=== PATIENT | male | born 1955 | race Two or more races ===

== ENCOUNTER 2024-08-05 10:23 | Emergency (ER) | payer OTHER, MEDICAID ==
[~2024-08-05] VITALS: Ht 162.6 cm; Wt 84.0 kg
--- NOTE | 2024-08-05 10:30 | ECG ---
[facility] Test Date: 2024-08-05 Test Time: 10:24:01 Pat Name: ROXANA MCKEON Department: ED Room: Gender: M Supervisor Stripping: TANJA : 1955 Requested By: ITALO GARCIA Order Number: [id number] Reading MD: Wetson Gamez Measurements Intervals [place] Rate: 72 P: 48 AK: 138 QRS: 38 QRSD: 84 T: -7 QT: 410 QTc: 449 Interpretive Statements Sinus rhythm Electronically Signed On 08-08-2024 13:21:26 PDT by Weston Gamez Please click the below link to view image of tracing.
--- NOTE | 2024-08-05 10:33 | ED.PDOC ---
HPI Comments 69 y.o male presents to the ED for a chief complaint of substernal chest pain associated with sweats, SOB, and nausea that started today. Patient reports pain is non radiating, constant and rating a 7/10 on the pain scale. Patient had blood work done on 07/31/24 and 08/02/24 s/p possible spider bite to the left facial side and was found to have low potassium. Patient reports feeling agitated this morning. He denies any vomiting, diarrhea, fever, abdominal pain, or swelling to animal bite. No medical history reported. Chief Complaint: Chest Pain Time Seen by MD: 10:21 Reviewed Notes: Nurses Notes, Service Center Representative Notes, Medications, Allergies Allergies: Coded Allergies: NO KNOWN ALLERGIES (Unverified , 08/05/24) Information Source: Patient, Emergency Med Personnel Mode of Arrival: EMS Severity: Moderate Timing: Hours Duration: Since onset Prehospital treatment: 12 Lead EKG, Chemistry Teacher Location: Substernal Radiation: No Radiation Quality: Sharp Onset: At Rest Cardiac Risk Factors: None PE Risk Factors: None History of: None Associated Signs and Symptoms: SOB, N/V (nausea only ) Past Medical History PAST MEDICAL HISTORY: Denies Surgical History: Hernia Repair Surgical History (Other): left ankle Family History Family History: Reviewed,noncontributory to illness Social History Smoker: Non-Smoker Alcohol: Occasionally Drugs: Denies Drug Use Lives In: Home Constitutional: reports: sweats; denies: chills, diaphoresis, fatigue, fever, malaise, weakness, others EENTM: denies: blurred vision, double vision, ear bleeding, ear discharge, ear drainage, ear pain, ear ringing, eye pain, eye redness, hearing loss, mouth pain, mouth swelling, nasal discharge, nose bleeding, nose congestion, nose pain, photophobia, tearing, throat pain, throat swelling, voice changes, others Respiratory: reports: shortness of breath; denies: cough, hemoptysis, orthopnea, SOB at rest, SOB with excertion, stridor, wheezing, others Cardiovascular: reports: chest pain; denies: dizzy spells, diaphoresis, Dyspnea on exertion, edema, irregular heart beat, left arm pain, lightheadedness, palpitations, PND, syncope, others Gastrointestinal: reports: nausea; denies: abdomen distended, abdominal pain, blood streaked bowels, constipated, diarrhea, dysphagia, difficulty swallowing, hematemesis, melena, poor appetite, poor fluid intake, rectal bleeding, rectal pain, vomiting, others Genitourinary: denies: burning, dysuria, flank pain, frequency, hematuria, incontinence, penile discharge, penile sore, pain, testicle pain, testicle swelling, urgency, others Neurological: denies: dizziness, fainting, headache, left sided numbness, left sided weakness, numbness, paresthesia, pre-existing deficit, right sided numbness, right sided weakness, seizure, speech problems, tingling, tremors, weakness, others Musculoskeletal: denies: back pain, gout, joint pain, joint swelling, muscle pain, muscle stiffness, neck pain, others Integumetry: denies: bruises, change in color, change in hair/nails, dryness, laceration, lesions, lumps, rash, wounds, others Allergic/Immunocompromised: denies: Difficulty Healing, Frequent Infections, Hives, Itching, others Hematologic/Lymphatic: denies: anemia, blood clots, easy bleeding, easy bruising, swollen glands, others Endocrine: denies: excessive hunger, excessive sweating, excessive thirst, excessive urination, flushing, intolerance to cold, intolerance to heat, unexplained weight gain, unexplained weight loss, others Psychiatric: denies: anxiety, bipolar disorder, depression, hopeless, panic disorder, schizophrenia, sleepless, suicidal, others All Other Systems: Reviewed and Negative Physical Exam General Appearance: Mild Distress HEENT: Normal ENT Inspection, Pharynx Normal, TMs Normal Neck: Full Range of Motion, Non-Tender, Normal, Normal Inspection Respiratory: Chest Non-Tender, Lungs Clear, No Accessory Muscle Use, No Respiratory Distress, Normal Breath Sounds Cardiovascular: No Edema, No JVD, No Murmur, No Gallop, Normal Peripheral Pulses, Regular Rate/Rhythm Breast Exam: Deferred Gastrointestinal: No Organomegaly, Non Tender, No Pulsatile Mass, Normal Bowel Sounds, Soft Genitalia: Deferred Pelvic: Deferred Rectal: Deferred Extremities: No calf tenderness, Normal capillary refill, Normal inspection, Normal range of motion, Non-tender, No pedal edema Musculoskeletal : Apperance: Normal Neurologic: Alert, telemarketing agent II-XII nml as Tested, No Motor Deficits, Normal Affect, Normal Mood, No Sensory Deficits Cerebellar Function: Normal Reflexes: Normal Skin: Dry, Normal Color, Warm Lymphatic: No Adenopathy EKG EKG : Pulse Rate (adult): 72 Cardiac Rhythm: NSR Was a procedure done? Was a procedure done?: No CP Differential Dx Differential Diagnosis: N/A Differential Diagnosis: Angina, Chest Wall Pain, Cholelithiasis, Costochondritis, Myocardial Infarction, Pericarditis X-Ray, Labs, Meds, VS Vital Signs Date Time Temp Pulse Resp B/P (MAP) Pulse Ox O2 Delivery O2 Flow Rate FiO2 08/05/24 11:26 66 20 135/81 08/05/24 10:48 95 Nasal Cannula* 2 28 08/05/24 10:40 15 93 Room Air* 0 21 08/05/24 10:36 98.9 73 15 134/80 (98) 93 98.9 08/05/24 10:33 72 08/05/24 10:29 98.9 73 15 134/80 (98) 93 98.9 08/05/24 10:24 72 Lab Test 08/05/24 11:38 08/05/24 10:38 Range/Units Troponin I High Sensitivity Pending 4 </=54 ng/L White Blood Count 7.3 4.4-10.8 10^3/uL Red Blood Count 4.14 L 4.5-5.90 10^6/uL Hemoglobin 13.7 13.5-17.5 g/dL Hematocrit 39.5 L 41.0-53.0 % Mean Corpuscular Volume 95.4 80.0-100.0 fL Mean Corpuscular Hemoglobin 33.1 H 28.0-32.0 pg Mean Corpuscular Hemoglobin Concent 34.7 32.0-36.0 g/dL Red Cell Distribution Width 15.3 H 11.8-14.3 % Platelet Count 139 L 140-450 10^3/uL Mean Platelet Volume 9.0 6.9-10.8 fL Neutrophils (%) (Auto) 59.0 37.0-80.0 % Lymphocytes (%) (Auto) 27.7 10.0-50.0 % Monocytes (%) (Auto) 9.7 0.0-12.0 % Eosinophils (%) (Auto) 3.0 0.0-7.0 % Basophils (%) (Auto) 0.6 0.0-2.0 % Neutrophils # (Auto) 4.3 1.6-8.6 10 ^3/uL Lymphocytes # (Auto) 2.0 0.4-5.4 10 ^3/uL Monocytes # (Auto) 0.7 0-1.3 10 ^3/uL Eosinophils # (Auto) 0.2 0-0.8 10 ^3/uL Basophils # (Auto) 0 0-0.2 10 ^3/uL Nucleated Red Blood Cells 0.0 % Sodium Level 141 136-145 mmol/L Potassium Level 3.4 L 3.5-5.1 mmol/L Chloride Level 105 98-107 mmol/L Carbon Dioxide Level 26 20-31 mmol/L Anion Gap 10 5-15 Blood Urea Nitrogen 8 L 9-23 mg/dL Creatinine 0.89 0.700-1.30 mg/dL Glomerular Filtration Rate Calc 94 >90 mL/min BUN/Creatinine Ratio 9.0 L 10.0-20.0 Serum Glucose 149 H 74-106 mg/dL Calcium Level 9.2 8.7-10.4 mg/dL Current Medications Medications (Trade) Dose Ordered Sig/Frida Route Start Time Stop Time Status Last Admin Aspirin 162 mg ONCE ONCE PO 08/05/24 10:30 08/05/24 10:32 DC 08/05/24 10:39 Morphine Sulfate 4 mg ONCE ONCE IV 08/05/24 11:15 08/05/24 11:16 DC 08/05/24 11:26 Ondansetron HCl (Zofran) 4 mg ONCE ONCE IV 08/05/24 11:15 08/05/24 11:16 DC 08/05/24 11:26 Procedure: XY CHEST PORTABLE 08/05/2024 10:39 AM IMPRESSION: 1. No acute cardiopulmonary disease. IV Hep-Lock was established. The patient was given morphine 4 mg IV push The patient was given Zofran 4 mg IV push The patient was given aspirin 162 mg by mouth The 1st troponin level came back as negative The CBC and chemistry panel are within normal limits The patient was still having some persistent chest pain The patient was being admitted at this time A cardiology consult will be obtained. Images Reviewed?: Images reviewed and evaluated by me Time of 1ST Reevaluation: 10:29 Reevaluation 1ST: Unchanged Patient Education/Counseling: Diagnosis, Treatment, Prognosis Family Education/Counseling: No Family Present Departure 1 Departure Time of Disposition: 11:48 Impression: Primary Impression: Acute myocardial ischemia Disposition: 09 ADMITTED INPATIENT Condition: Fair Critical Care Note Critical Care Time?: Yes (35 min-critical care time only) Stability Stability form required: Yes Unstable for transfer: Telemetry monitoring (Telemetry monitoring required), ED Physician Assesment (Clinical assesment) Heart Score Heart Score: Heart Score Response (Comments) Value History Slightly Suspicious 0 EKG Normal 0 Age 45-64 1 Risk Factors 1 or 2 risk factors 1 Troponin Normal limit 0 Total 2 I personally scribed for ITALO GARCIA MD ([email or web address]) on 08/05/24 at 10:33. Electronically submitted by Kiersten Mendez (Clean Runner). I personally scribed for ITALO GARCIA MD ([email or web address]) on 08/05/24 at 11:36. Electronically submitted by Kiersten Mendez (Clean Runner). ITALO GARCIA MD Aug 05, 2024 10:33
[2024-08-05] MEDS: ASPirin 81 mg TAB PO ONE (10:39)
[2024-08-05 10:40] VITALS: RESP 15; O2SAT 93
[2024-08-05 10:54] LABS: Basophils # (auto) 0 10 ^3/uL (0-0.2); Basophils % (auto) 0.6 % (0.0-2.0); Eosinophils # (auto) 0.2 10 ^3/uL (0-0.8); Hematocrit 39.5 % (41.0-53.0); Hemoglobin 13.7 g/dL (13.5-17.5); Lymphocytes % (auto) 27.7 % (10.0-50.0); Mean Corpuscular Hemoglobin 33.1 pg (28.0-32.0); Mean Corpuscular Hgb Conc. 34.7 g/dL (32.0-36.0); Mean Corpuscular Volume 95.4 fL (80.0-100.0); Monocytes # (auto) 0.7 10 ^3/uL (0-1.3); Monocytes % (auto) 9.7 % (0.0-12.0); Neutrophils # (auto) 4.3 10 ^3/uL (1.6-8.6); Platelet Count (auto) 139 10^3/uL (140-450); Red Blood Cells 4.14 10^6/uL (4.5-5.90); Red Cell Distribution Width 15.3 % (11.8-14.3); White Blood Cell 7.3 10^3/uL (4.4-10.8)
[2024-08-05 10:59] LABS: Chloride 105 mmol/L (98-107); Sodium 141 mmol/L (136-145)
[2024-08-05 11:00] LABS: Anion Gap 10 (5-15); Calcium 9.2 mg/dL (8.7-10.4); Carbon Dioxide 26 mmol/L (20-31)
[2024-08-05 11:04] LABS: Potassium 3.4 mmol/L (3.5-5.1)
[2024-08-05 11:07] LABS: Blood Urea Nitrogen 8 mg/dL (9-23); Glucose 149 mg/dL (74-106)
--- NOTE | 2024-08-05 11:19 | ECG ---
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
[2024-08-05] MEDS: MORPHINE SULFATE 4 MG/ML SYR/VIAL IV ONE (11:26)
[2024-08-05] MEDS: ONDANSETRON HCL 4 MG/2 ML VIAL IV ONE (11:26)
--- NOTE | 2024-08-05 11:28 | DVH ---
Procedure: XY CHEST PORTABLE 08/05/2024 10:39 AM Indication: cp Comparison: None TECHNIQUE: XY CHEST PORTABLE FINDINGS: Medical devices: None. Cardiomediastinal: The heart is normal in size. Pulmonary vasculature is within normal limits. Athero sclerotic calcification of the aortic arch noted. Lungs: No focal pulmonary opacity is seen. The costophrenic angles are clear. No pneumothorax. Bones/soft tissues: No acute abnormality is noted. IMPRESSION: 1. No acute cardiopulmonary disease.
[2024-08-05 14:40] VITALS: PULSE 66; RESP 14; O2SAT 93
[2024-08-05 14:42] VITALS: BP 130/79; PULSE 67; RESP 16; TEMP 98.4; O2SAT 94
== END 2024-08-05 15:07 | disposition short-term general hospital (02) ==
LOC: EDBD 10:23 → ER 10:23
DX: I99.8 Other disorder of circulatory system (principal); R11.0 Nausea; R06.02 Shortness of breath; Z98.890 Other specified postprocedural states
CPT/HCPCS: 36415; 71045; 80048; 84484; 85025; 93005; 96374; 96375; 99285; J2270; J2405

== ENCOUNTER 2024-12-24 13:32 | Emergency (ER) | payer OTHER, MEDICAID ==
[~2024-12-24] VITALS: Ht 162.6 cm; Wt 81.8 kg
--- NOTE | 2024-12-24 13:46 | ED.PDOC ---
HPI (NEURO) HPI Comments 69-year-old male brought in by EMS presents with a chief complaint of possible stroke x 2 hours onset. Per EMS, patient endorsed that he was working outside in the heat and all he drank was one beer, but then "did not feel well" and went inside the house. Patient then called EMS as he started to feel worse. Patient denied drinking any water today, eating anything today, or any drug use. Patient has no focal deficients, but is acting not at his baseline. On initial evaluation, patient appears confused it and not very lucid however he is able to follow command. His behavior is still on. Complains of some generalized body aches everywhere. No fall or trauma or injury. No family members at bedside. PMHx: Unknown PSHx: Hernia Repair HPI: Poor Historian. Past Medical History: Past Surgical History: REVIEW OF SYSTEMS: CONSTITUTIONAL: Denies acute: fever, diaphoresis, chills, HEAD: Denies acute: headache, photophobia Eyes: Denies acute: Double vision, vision loss, eye pain, eye discharge. EARS: Denies acute: tinnitus, hearing loss, ear discharge, ear pain, THROAT: Denies acute: sore throat, swelling, difficulty swallowing , pain with swallowing, change in voice. NECK: Denies acute: neck pain, neck swelling, stiff neck. HEART: Denies acute : chest pain, palpitations, LUNGS: Denies acute: SOB, wheezing, cough, hemoptysis ABDOMEN: Denies acute: abdominal pain, Nausea, Vomiting, diarrhea, melena , hematemesis, hematochezia SKIN: Denies acute: rash, redness, lesions, itchiness. EXTREMITIES: Denies acute: calf pain, numbness, tingling, weakness, denies pain in extremity. Denies acute: Low back pain. Neuro: Denies acute: focal neurological deficit, motor or sensory focal neurological deficit, tremors, seizure like activity, loss of bowel or bladder function, cauda equina like symptoms. : Denies acute: dysuria, hematuria, flank pain, increase in urinary frequency. PSYCH: Denies acute: hallucination, suicidal ideation, homicidal ideation. PHYSICAL EXAM: General: ----[id number]----acute distress, awake and alert. Head: normocephalic, atraumatic. Neck: supple, trachea is midline, no swelling. Throat: Normal phonation. Eyes:, no erythema, no purulent discharge, no proptosis, no icterus. Heart: regular rate, regular rhythm, no significant murmur appreciated. Lungs: no apparent respiratory distress, Able to speak in full sentences. No wheezing, no rhonchi, no crackles. No stridors Clear to auscultation bilaterally. Abdomen: non tender to palpation, non distended, soft, no guarding, no rebound, + bowel sounds. Neuro: Awake, Alert, oriented to name, follows commands Skin: no petechia, no purpura, no cyanosis, non-pale, not jaundice. Lower extremities: --no - Pitting edema no deformity, no focal swelling, no calf TTP. Makes eye contact. moves all four extremities. Face: no apparent facial droop. Stroke: finger to nose cerebellar testing is intact. No pronator drift. Symmetrical regional safety manager muscle strength b/l PERRLA, EOM-I CN 2-12 are grossly intact, No nystagmus. No nuchal rigidity, Kernig's sign, Brudzinski's sign, no meningeal signs. ED COURSE: DISCLAIMER: This medical document was created using an electronic medical record system with voice recognition software and computerized dictation system. Although this document has been carefully reviewed, there might still be some phonetic and typographical errors. Occasional wrong-word or "sound-alike" substitutions may have occurred due to the inherent limitations of voice recognition software. The se areas are purely typographical due to imperfections of the software programs and do not reflect any compromise in the patient's medical care. Please read the chart carefully and recognize, using context, where these substitutions have occurred. Time Seen by MD: 13:32 Primary Care Provider: SHERRIE Adamson Notes: Medications, Allergies Information Source: Patient, Emergency Med Personnel Mode of Arrival: EMS Past Medical History PAST MEDICAL HISTORY: Denies Surgical History: Hernia Repair Family History Family History: Reviewed,noncontributory to illness Social History Smoker: Non-Smoker Alcohol: Occasionally Drugs: Denies Drug Use Lives In: Home Was a procedure done? Was a procedure done?: No Differential Diagnosis (SZ) Headache: Other (DDX include CVA, TGA, cerebellar ischemia/infarct, carotid stenosis, Intracranial mass/infection/bleed, encephalopathy, electrolyte abnormality, thyroid disease, hydrocephalus, hypoglycemia, drug toxicity, cardiac arrhythmia, seizure, infection in the elderly, Hyperammonemia., kidney failure., sepsis.) X-Ray, Labs, Meds, VS Vital Signs Date Time Temp Pulse Resp B/P (MAP) Pulse Ox O2 Delivery O2 Flow Rate FiO2 12/24/24 14:30 98.3 66 13 128/70 (89) 97 98.3 12/24/24 14:00 79 12/24/24 13:50 98.9 77 18 132/83 94 98.9 Lab Test 12/24/24 14:49 12/24/24 14:10 12/24/24 14:04 Range/Units White Blood Count 7.4 4.4-10.8 10^3/uL Red Blood Count 4.63 4.5-5.90 10^6/uL Hemoglobin 15.3 13.5-17.5 g/dL Hematocrit 45.6 41.0-53.0 % Mean Corpuscular Volume 98.4 80.0-100.0 fL Mean Corpuscular Hemoglobin 33.1 H 28.0-32.0 pg Mean Corpuscular Hemoglobin Concent 33.7 32.0-36.0 g/dL Red Cell Distribution Width 14.6 H 11.8-14.3 % Platelet Count 200 140-450 10^3/uL Mean Platelet Volume 9.3 6.9-10.8 fL Neutrophils (%) (Auto) 39.6 37.0-80.0 % Lymphocytes (%) (Auto) 52.2 H 10.0-50.0 % Monocytes (%) (Auto) 6.0 0.0-12.0 % Eosinophils (%) (Auto) 1.4 0.0-7.0 % Basophils (%) (Auto) 0.8 0.0-2.0 % Neutrophils # (Auto) 2.9 1.6-8.6 10 ^3/uL Lymphocytes # (Auto) 3.9 0.4-5.4 10 ^3/uL Monocytes # (Auto) 0.4 0-1.3 10 ^3/uL Eosinophils # (Auto) 0.1 0-0.8 10 ^3/uL Basophils # (Auto) 0.1 0-0.2 10 ^3/uL Nucleated Red Blood Cells 0.6 % Prothrombin Time 12.0 H 9.3-11.8 sec Prothrombin Time INR 1.15 0.9-1.15 Activated Partial Thromboplast Time 29.1 24.5-34.5 SEC Sodium Level 148 H 136-145 mmol/L Potassium Level 3.9 3.5-5.1 mmol/L Chloride Level 111 H 98-107 mmol/L Carbon Dioxide Level 25 20-31 mmol/L Anion Gap 12 5-15 Blood Urea Nitrogen 6 L 9-23 mg/dL Creatinine 0.76 0.700-1.30 mg/dL Glomerular Filtration Rate Calc 99 >90 mL/min BUN/Creatinine Ratio 7.9 L 10.0-20.0 Serum Glucose 123 H 74-106 mg/dL Calcium Level 8.6 L 8.7-10.4 mg/dL Magnesium Level 2.1 1.6-2.6 mg/dL Total Bilirubin 0.3 0.2-1.0 mg/dL Aspartate Amino Transferase (AST) 47 H 13-40 U/L Alanine Aminotransferase (ALT) 55 H 7-40 U/L Alkaline Phosphatase 90 46-116 U/L Creatine Kinase 86 46-171 U/L Troponin I High Sensitivity 3 L </=54 ng/L B-Type Natriuretic Peptide 49.99 0-100 pg/mL Total Protein 6.9 5.7-8.2 g/dL Albumin 4.2 3.2-4.8 g/dL Urine Opiates Screen Neg NEGATIVE Urine Fentanyl Screen Neg NEGATIVE Urine Barbiturates Screen Neg NEGATIVE Urine Phencyclidine Screen Neg NEGATIVE Urine Amphetamines Screen Neg NEGATIVE Urine Benzodiazepines Screen Neg NEGATIVE Urine Cocaine Screen Neg NEGATIVE Urine Cannabinoids Screen Neg NEGATIVE POC Glucose 144 H 70-106 mg/dl [address] [address] Ph: [phone] DIAGNOSTIC IMAGING Diagnostic Imaging Report : [id number] Signed PATIENT: ROXANA GOULDACCT: [id number] UNIT: [id number] : 1955 LOC: ER ROOM / BED: / AGE / SEX: 69 / M ADM STATUS: REG ER SERVICE 1336 ORDERING PHYSICIAN: CHRISTIAN ISABEL DO PROCEDURE(s): CTH - STROKE CTH REASON: AMS ORDER NUMBER(s): [id number], ACCESSION NUMBER(s): [id number] EXAM: CT STROKE CTH INDICATION: AMS TECHNIQUE: CT of the head without intravenous contrast. Radiation Dose : 1. Head: CT Dose: CTDI volume is 64.55 mGy. Dose-length product is 1.71 mGy*cm The dose indicators for CT are the volume Computed Tomography (CT) Dose Index (CTDIvol) and the Dose Length Product (DLP), and are measured in units of mGy and mGy-cm, respectively. These indicators are not patient dose, but values generated from the CT scanner acquisition factors. The report includes radiation exposure data for exposures received during this examination. COMPARISON: None FINDINGS: There is no evidence of acute intracranial hemorrhage, extra-axial collection, mass effect, midline shift, herniation or hydrocephalus. The ventricles, sulci and cisterns are age appropriate. The olea-white differentiation is intact. Patchy periventricular and subcortical white matter hypoattenuation is nonspecific but may be related to small vessel ischemic disease. The visualized paranasal sinuses and mastoid air cells are clear. The surrounding soft tissues and osseous structures are unremarkable. IMPRESSION: 1. No acute intracranial abnormality. Radiation optimization: All CT scans at this facility use at least one of these dose optimization techniques: automated exposure control mA and/or kV adjustment per patient size (includes targeted exams where dose is matched to clinical indication) or iterative reconstruction. ATED BY: SANDEE PEPE MD DICTATED DATE/TIME: 12/24/241416 SIGNED BY: SANDEE PEPE MD SIGNED DATE/TIME: 12/24/24 [address] [address] Ph: [phone] DIAGNOSTIC IMAGING Diagnostic Imaging Report : [id number] Signed PATIENT: ROXANA GOULDACCT: [id number] UNIT: [id number] : 1955 LOC: ER ROOM / BED: / AGE / SEX: 69 / M ADM STATUS: REG ER SERVICE 1336 ORDERING PHYSICIAN: CHRISTIAN ISABEL DO PROCEDURE(s): CXR1 - CHEST XRAY 1 VIEW REASON: AMS, ORDER NUMBER(s): [id number], ACCESSION NUMBER(s): [id number] CHEST RADIOGRAPH Indication: AMS, Technique: Single frontal view of the chest was obtained COMPARISON: XY CHEST PORTABLE on DOS: 08/05/24 FINDINGS: Lines and Tubes: None Lungs: Clear Pleura: No effusion. No pneumothorax. Cardiomediastinal contours: Cardiomegaly Bones: Unremarkable IMPRESSION: No acute disease. ATED BY: JESUS WHEELER MD DICTATED DATE/TIME: 12/24/241410 SIGNED BY: JESUS WHEELER MD SIGNED DATE/TIME: 12/24/241410 CC: Time of 1ST Reevaluation: 14:12 (Stroke code protocol was initiated immediately upon arrival in triage by EMS. I discussed the case with the neurologist. He evaluated the patient on the camera. He states that this is most likely some type of encephalopathy. He recommends admission and workup but no need for anticoagulation at this time. Dr. Bell) Reevaluation 1ST: Unchanged Time of 2ND Reevaluation: 15:10 (As of now all labs are still pending) Patient Education/Counseling: Diagnosis, Treatment Family Education/Counseling: No Family Present Comments We are waiting for [facility] to call back to transfer the patient for further evaluation and treatment. Patient decided to leave against medical advice. Code stroke was activated immediately upon evaluation. Case discussed with neurology who evaluated the patient. MDM: patient presented with the above HPI.--altered mental status----workup was initiated. patient was found with the above mentioned diagnosis. the following medications were ordered: please refer to order lists of meds and tests obtained by myself Dr. Isabel. Patient ED course and VS have been stabilized. Patient has been reassessed in the ED and remained in a stable condition. Pertinent incidental findings were discussed with the patient and/or family. Escalation of care considered: Consideration of escalation to observation or admission All the reports of any imaging studies that were ordered by myself were reviewed by myself. Departure 1 Departure Time of Disposition: 14:12 Impression: Primary Impression: Altered mental status Additional Impression: Left against medical advice Disposition: 07 LEFT AGAINST MEDICAL ADVICE Admit to: Tele Condition: Guarded Discharged With: Self Critical Care Note Critical Care Time?: Yes (1 hr-critical care time only) I personally scribed for CHRISTIAN ISABEL DO ([email or web address]) on 12/24/24 at 13:46. Electronically submitted by Leeroy Mina ([email or web address]). I personally scribed for CHRISTIAN ISABEL DO ([email or web address]) on 12/24/24 at 16:16. Electronically submitted by Leeroy Mina ([email or web address]). CHRISTIAN ISABEL DO Dec 24, 2024 13:46
--- NOTE | 2024-12-24 14:09 | DVHINCON2 ---
Date of service: Dec 24, 2024 Allergies: Coded Allergies: NO KNOWN ALLERGIES (Unverified , 08/05/24) Vital Signs Vital Signs Date Time Temp Pulse Resp B/P (MAP) Pulse Ox O2 Delivery O2 Flow Rate FiO2 12/24/24 14:00 79 Assessment Rena Lara Neuro Note # Demographics Consult Type: Acute Stroke Level 1 (0-4.5 hrs) Patient Location: Emergency Room First Name: Edwin Last Name: JAMES MCKEON Date of : 1955 Age: 69 Gender: Male Facility: [facility] Time of Initial Page (): 12/24/2024 13:43 First Contact with Site (): 12/24/2024 13:44 # HPI Chief Complaint: - confusion - altered mental state History: 69 y/o M with no previously diagnosed medical history presents with 2 hours of confusion/altered mental status. At CT at time of alert. Patient reports he is "sad." Then becomes tearful. Says next year will be his 52th anniversary, then says he has happy tears. Patient was at home doing yard work and no one was looking for him. # Scores Time of exam and NIHSS (): 12/24/2024 14:01 Level of Consciousness 1a: [0] = Alert; keenly responsive LOC Questions 1b: [0] = Answers both questions correctly LOC Commands 1c: [0] = Performs both tasks correctly Best Gaze 2: [0] = Normal Visual 3: [0] = No visual loss Facial Palsy 4: [0] = Normal symmetrical movements Motor Arm Left 5a: [0] = No drift Motor Arm Right 5b: [0] = No drift Motor Leg Left 6a: [0] = No drift Motor Leg Right 6b: [0] = No drift Limb Ataxia 7: [0] = Absent Sensory 8: [0] = Normal Best Language 9: [1] = Wdea-bw-qjrntqab aphasia Dysarthria 10: [0] = Normal Extinction and Inattention 11: [0] = No abnormality NIHSS Total: 1 # Data Head CT: - no bleed - preliminarily reviewed by me, please refer to radiology read for official reading # Assessment Impression: - Altered Mental Status # Plan Thrombolytic/Intervention: NOT IV Thrombolysis or IA Intervention candidate Thrombolytic Exclusion (< 3 hour window): - other (see below) Thrombolytic Exclusion: Lack of clear lateralizing deficits favors encephalopathy over stroke Intraarterial Exclusion: - clinical exam not consistent with presence of large vessel occlusion (LVO), can reconsider if LVO found on vascular imaging Other: - If patient has any neurological deterioration please call me back immediately - I have discussed my recommendations with the referring provider Additional Recommendations: Infectious/Metabolic/toxic testing and treatment per ED/Primary. Consider brain MRI if no clear etiology and symptoms persist. # Logistics Attestation of consult completion: The patient is located at: [facility]. Facility staff participated in the visit. I performed this telemedicine visit from my offsite office utilizing interactive 2 way audio and visual telecommunication technology at the request of the onsite emergency room provider. Total time spent in telemedicine encounter: I spent 15 minutes reviewing clinical data and/or imaging, obtaining history, examining the patient, communicating with the onsite care team, and in preparation of this report. # Demographics First Name: Edwin Last Name: JAMES FITCHRRA Facility: [facility] Plan discussed with: Other (ED Provider) AYAZ CARNEY MD Dec 24, 2024 14:09
--- NOTE | 2024-12-24 14:13 | DVH ---
CHEST RADIOGRAPH Indication: AMS, Technique: Single frontal view of the chest was obtained COMPARISON: XY CHEST PORTABLE on DOS: 08/05/24 FINDINGS: Lines and Tubes: None Lungs: Clear Pleura: No effusion. No pneumothorax. Cardiomediastinal contours: Cardiomegaly Bones: Unremarkable IMPRESSION: No acute disease.
--- NOTE | 2024-12-24 14:19 | DVH ---
EXAM: CT STROKE CTH INDICATION: AMS TECHNIQUE: CT of the head without intravenous contrast. Radiation Dose : 1. Head: CT Dose: CTDI volume is 64.55 mGy. Dose-length product is 1.71 mGy*cm The dose indicators for CT are the volume Computed Tomography (CT) Dose Index (CTDIvol) and the Dose Length Product (DLP), and are measured in units of mGy and mGy-cm, respectively. These indicators are not patient dose, but values generated from the CT scanner acquisition factors. The report includes radiation exposure data for exposures received during this examination. COMPARISON: None FINDINGS: There is no evidence of acute intracranial hemorrhage, extra-axial collection, mass effect, midline s hift, herniation or hydrocephalus. The ventricles, sulci and cisterns are age appropriate. The olea-white differentiation is intact. Patchy periventricular and subcortical white matter hypoattenuation is nonspecific but may be related to small vessel ischemic disease. The visualized paranasal sinuses and mastoid air cells are clear. The surrounding soft tissues and osseous structures are unremarkable. IMPRESSION: 1. No acute intracranial abnormality. Radiation optimization: All CT scans at this facility use at least one of these dose optimization anastasia hniques: automated exposure control mA and/or kV adjustment per patient size (includes targeted exam s where dose is matched to clinical indication) or iterative reconstruction.
[2024-12-24 14:30] VITALS: BP 128/70; PULSE 66; RESP 13; TEMP 98.3; O2SAT 97
[2024-12-24] MEDS: SODIUM CHLORIDE 0.9% 1,000 ML IV ONE (14:34)
[2024-12-24 14:48] LABS: Amphetamine Screen, Urine Neg (NEGATIVE); Barbiturate Scree,Urine Neg (NEGATIVE); Benzodiazephine Screen, Urine Neg (NEGATIVE); Cannabinoid Screen, Urine Neg (NEGATIVE); Cocaine Screen, Urine Neg (NEGATIVE); Opiate Scree,Urine Neg (NEGATIVE); Phencyclidine Screen, Urine Neg (NEGATIVE)
[2024-12-24 15:02] LABS: Hematocrit 45.6 % (41.0-53.0); Hemoglobin 15.3 g/dL (13.5-17.5); Mean Corpuscular Hemoglobin 33.1 pg (28.0-32.0); Mean Corpuscular Volume 98.4 fL (80.0-100.0); Nucleated Red Blood Cells % 0.6 %
[2024-12-24 15:17] LABS: INR 1.15 (0.9-1.15); Partial Thromboplastin Time 29.1 SEC (24.5-34.5); Prothrombin Time 12.0 sec (9.3-11.8)
[2024-12-24 15:20] LABS: Albumin 4.2 g/dL (3.2-4.8); Alkaline Phosphatase 90 U/L (46-116); Anion Gap 12 (5-15); BUN/Creatinine Ratio 7.9 (10.0-20.0); Carbon Dioxide 25 mmol/L (20-31); Magnesium 2.1 mg/dL (1.6-2.6); Potassium 3.9 mmol/L (3.5-5.1); Total Protein 6.9 g/dL (5.7-8.2)
[2024-12-24 15:22] LABS: Alanine Aminotransferase 55 U/L (7-40); Bilirubin, Total 0.3 mg/dL (0.2-1.0); Blood Urea Nitrogen 6 mg/dL (9-23); Calcium 8.6 mg/dL (8.7-10.4); Chloride 111 mmol/L (98-107); Glucose 123 mg/dL (74-106); Sodium 148 mmol/L (136-145)
--- NOTE | 2024-12-30 11:51 | ECG ---
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
== END 2024-12-24 15:36 | disposition left against medical advice (07) ==
LOC: EDBD 13:32 → ER 13:32
DX: R41.82 Altered mental status, unspecified (principal); R47.01 Aphasia; Z98.890 Other specified postprocedural states; Z79.899 Other long term (current) drug therapy
CPT/HCPCS: 36415; 70450; 71045; 80053; 80307; 82550; 82947; 82962; 83735; 83880; 84484; 85025; 85610; 85730; 93005; 96360; 99285; J7030